=== PATIENT | male | born 1950 | race Caucasian/White ===

== ENCOUNTER 2024-05-08 08:06 | Inpatient (IN) | payer OTHER, MEDICAID ==
[~2024-05-08] VITALS: Ht 160 cm; Wt 77.1 kg
[2024-05-08 08:34] VITALS: BP_SYST 129; PULSE 86; RESP 20; TEMP 97.8; O2SAT 96
[2024-05-08 08:34] LABS: BASOPHILS # (AUTO) 0.1 K/uL (0.0-0.2); BASOPHILS % (AUTO) 1.2 % (0.0-2.0); EOSINOPHILS # (AUTO) 0.2 K/uL (0.0-0.4); EOSINOPHILS % (AUTO) 2.9 % (0.0-4.0); HEMATOCRIT 40.2 % (36-54); HEMOGLOBIN 13.5 g/dL (14.0-18.0); LYMPHOCYTES # (AUTO) 1.3 K/uL (1.0-5.5); LYMPHOCYTES % (AUTO) 19.8 % (20.5-51.5); MEAN CORPUSCULAR HEMOGLOBIN 32 pg (27-31); MEAN CORPUSCULAR HGB CONC 34 % (32-36); MEAN CORPUSCULAR VOLUME 96 fL (79.0-98.0); MONOCYTES # (AUTO) 0.8 K/uL (0.0-1.0); MONOCYTES % (AUTO) 12.8 % (1.7-9.3); NEUTROPHILS # (AUTO) 4.1 K/uL (1.8-7.7); NEUTROPHILS % (AUTO) 63.3 % (40.0-70.0); PLATELET COUNT (AUTO) 213 K/uL (130-430); RED BLOOD CELL COUNT(AUTO) 4.19 MIL/uL (4.2-6.2); RED CELL DISTRIBUTION WIDTH 15.5 % (9.0-15.0); WHITE BLOOD COUNT (AUTO) 6.5 K/uL (4.8-10.8)
[2024-05-08 08:46] LABS: ALANINE AMINOTRANSFERASE 29 U/L (12-78); ALBUMIN 3.8 g/dL (3.4-4.8); ANION GAP 9 (5-15); ASPARTATE AMINOTRANSFERASE 21 U/L (10-37); BILIRUBIN,DIRECT 0.7 mg/dL (0.0-0.3); CALCIUM 9.1 mg/dL (8.4-11.0); CARBON DIOXIDE 25 mmol/L (23-29); CHLORIDE 99 mmol/L (98-107); CREATININE 1.81 mg/dL (0.55-1.30); GLUCOSE 288 mg/dL (74-106); LIPASE 65 U/L (16-77); POTASSIUM 5.5 mmol/L (3.5-5.1); SODIUM SERUM 133 mmol/L (136-145); TOTAL BILIRUBIN 1.2 mg/dL (0.0-1.0); TOTAL PROTEIN, SERUM 7.5 g/dL (6.4-8.3); UREA NITROGEN, BLOOD 43 mg/dL (8-21)
[2024-05-08 09:05] LABS: BILIRUBIN,URINE NEGATIVE (NEGATIVE); BLOOD, URINE NEGATIVE (NEGATIVE); CLARITY/URINE CLEAR (CLEAR); COLOR,URINE YELLOW (YELLOW); GLUCOSE,URINE NEGATIVE (NEGATIVE); KETONES,URINE NEGATIVE (NEGATIVE); LEUKOCYTE ESTERASE ,URINE NEGATIVE (NEGATIVE); NITRITE, URINE NEGATIVE (NEGATIVE); PROTEIN URINE 1+ (NEGATIVE)
[2024-05-08] MEDS: SODIUM POLYSTYRENE SULFONATE 15 GM/60 ML UDBTL PO ONE (10:20)
[2024-05-08] MEDS ORDERED: CLOP75TA32 PO (10:27)
[2024-05-08] MEDS ORDERED: SPIR50TA5 PO (10:27)
[2024-05-08] MEDS ORDERED: FURO-149 PO (10:27)
[2024-05-08] MEDS ORDERED: LIP40 PO (10:27)
[2024-05-08] MEDS ORDERED: APIX5TAB PO (10:27)
[2024-05-08] MEDS ORDERED: DIGO-31 PO (10:27)
[2024-05-08] MEDS ORDERED: LISI10TA29 PO (10:27)
[2024-05-08] MEDS ORDERED: GLIP10TA21 PO (10:27)
[2024-05-08] MEDS ORDERED: PRO40 PO (10:27)
[2024-05-08] MEDS ORDERED: CARV25TA55 PO (10:27)
[2024-05-08] MEDS: *LOVENOX 1MG/KG Q12H/PHARMACY XX ONE (13:15)
[2024-05-08] MEDS ORDERED: INSULIN ASPART 100 UNITS/ML, 10 ML VIAL (NovoLOG) SUBCUT PRN (13:15)
[2024-05-08] MEDS: 0.45% NACL 1,000 ML IV ONE (13:52)
[2024-05-08] MEDS: DIGOXIN 0.125 MG TABLET PO ONE (13:58)
[2024-05-08] MEDS: CARVEDILOL 25 MG TABLET (COREG) PO ONE (13:58)
[2024-05-08] MEDS: glipiZIDE XL 5 MG TAB ( GLUCOTROL XL) PO ONE (14:04)
[2024-05-08 14:58] VITALS: BP_SYST 115; PULSE 80; RESP 18; TEMP 97.5
[2024-05-08 16:25] VITALS: BP_SYST 104; PULSE 79; RESP 16; TEMP 97.7; O2SAT 99
[2024-05-08] MEDS: ENOXAPARIN SODIUM 40 MG/0.4 ML SYRINGE SUBCUT SCH (17:09)
[2024-05-08] MEDS: PIPERACILLIN/TAZO 4.5 GM in D5W 100 ML IV ONE (17:11)
[2024-05-08 19:00] VITALS: BP_SYST 115; PULSE 80; RESP 18; TEMP 97.5
[2024-05-08 20:00] VITALS: O2SAT 99
[2024-05-08 20:05] VITALS: BP_SYST 107; PULSE 82; RESP 18; TEMP 97.6; O2SAT 99
[2024-05-08] MEDS: glipiZIDE XL 5 MG TAB ( GLUCOTROL XL) PO SCH (20:36)
[2024-05-08] MEDS: PIPERACILLIN/TAZO 4.5 GM in D5W 100 ML IV SCH (22:08)
[2024-05-08] MEDS: DIPHENHYDRAMINE HCL 12.5 MG/5 ML UDC PO ONE (23:50)
[2024-05-09 01:28] VITALS: BP_SYST 105; PULSE 79; RESP 18; TEMP 97.6; O2SAT 99
[2024-05-09 06:08] LABS: BASOPHILS # (AUTO) 0.1 K/uL (0.0-0.2); BASOPHILS % (AUTO) 1.1 % (0.0-2.0); EOSINOPHILS # (AUTO) 0.2 K/uL (0.0-0.4); EOSINOPHILS % (AUTO) 4.3 % (0.0-4.0); HEMATOCRIT 37.5 % (36-54); HEMOGLOBIN 12.4 g/dL (14.0-18.0); LYMPHOCYTES # (AUTO) 0.8 K/uL (1.0-5.5); LYMPHOCYTES % (AUTO) 16.1 % (20.5-51.5); MEAN CORPUSCULAR HEMOGLOBIN 31 pg (27-31); MEAN CORPUSCULAR HGB CONC 33 % (32-36); MEAN CORPUSCULAR VOLUME 94 fL (79.0-98.0); MONOCYTES # (AUTO) 0.5 K/uL (0.0-1.0); MONOCYTES % (AUTO) 10.2 % (1.7-9.3); NEUTROPHILS # (AUTO) 3.4 K/uL (1.8-7.7); NEUTROPHILS % (AUTO) 68.3 % (40.0-70.0); PLATELET COUNT (AUTO) 181 K/uL (130-430); RED BLOOD CELL COUNT(AUTO) 3.98 MIL/uL (4.2-6.2); RED CELL DISTRIBUTION WIDTH 15.5 % (9.0-15.0); WHITE BLOOD COUNT (AUTO) 4.9 K/uL (4.8-10.8)
[2024-05-09 06:11] LABS: ANION GAP 10 (5-15); CALCIUM 8.6 mg/dL (8.4-11.0); CARBON DIOXIDE 26 mmol/L (23-29); CHLORIDE 100 mmol/L (98-107); CREATININE 1.45 mg/dL (0.55-1.30); GLUCOSE 242 mg/dL (74-106); POTASSIUM 4.2 mmol/L (3.5-5.1); SODIUM SERUM 136 mmol/L (136-145); UREA NITROGEN, BLOOD 29 mg/dL (8-21)
[2024-05-09 07:45] VITALS: BP_SYST 114; PULSE 81; RESP 16; TEMP 97.8; O2SAT 97
[2024-05-09 09:00] VITALS: O2SAT 97
[2024-05-09] MEDS: DIGOXIN 0.125 MG TABLET PO SCH (09:19)
[2024-05-09] MEDS: CARVEDILOL 25 MG TABLET (COREG) PO SCH (09:20)
[2024-05-09] MEDS: PANTOPRAZOLE SODIUM 40 MG TAB PO SCH (09:22)
[2024-05-09 11:19] VITALS: BP_SYST 119; PULSE 81; RESP 17; TEMP 96.9; O2SAT 100
[2024-05-09 15:12] VITALS: BP_SYST 105; PULSE 68; RESP 16; TEMP 96.6; O2SAT 93
[2024-05-09 20:00] VITALS: BP_SYST 114; PULSE 82; RESP 16; TEMP 98.2; O2SAT 98
[2024-05-10 01:01] VITALS: BP_SYST 103; PULSE 81; RESP 17; TEMP 96.8; O2SAT 97
[2024-05-10 08:27] VITALS: BP_SYST 117; PULSE 74; RESP 22; TEMP 97.2; O2SAT 100
[2024-05-10 08:42] LABS: BASOPHILS # (AUTO) 0.1 K/uL (0.0-0.2); BASOPHILS % (AUTO) 1.5 % (0.0-2.0); EOSINOPHILS # (AUTO) 0.2 K/uL (0.0-0.4); EOSINOPHILS % (AUTO) 3.4 % (0.0-4.0); HEMATOCRIT 39.4 % (36-54); HEMOGLOBIN 13.1 g/dL (14.0-18.0); LYMPHOCYTES # (AUTO) 0.8 K/uL (1.0-5.5); MEAN CORPUSCULAR HEMOGLOBIN 32 pg (27-31); MEAN CORPUSCULAR HGB CONC 33 % (32-36); MEAN CORPUSCULAR VOLUME 95 fL (79.0-98.0); MONOCYTES # (AUTO) 0.6 K/uL (0.0-1.0); MONOCYTES % (AUTO) 12.1 % (1.7-9.3); NEUTROPHILS # (AUTO) 3.1 K/uL (1.8-7.7); PLATELET COUNT (AUTO) 183 K/uL (130-430); RED BLOOD CELL COUNT(AUTO) 4.14 MIL/uL (4.2-6.2); RED CELL DISTRIBUTION WIDTH 15.3 % (9.0-15.0); WHITE BLOOD COUNT (AUTO) 4.7 K/uL (4.8-10.8)
[2024-05-10] MEDS: CARVEDILOL 12.5 MG TABLET (COREG) PO SCH (08:45)
[2024-05-10 09:18] LABS: ANION GAP 11 (5-15); CALCIUM 8.8 mg/dL (8.4-11.0); CARBON DIOXIDE 25 mmol/L (23-29); CHLORIDE 99 mmol/L (98-107); CREATININE 1.49 mg/dL (0.55-1.30); GLUCOSE 217 mg/dL (74-106); POTASSIUM 4.2 mmol/L (3.5-5.1); SODIUM SERUM 135 mmol/L (136-145); UREA NITROGEN, BLOOD 22 mg/dL (8-21)
[2024-05-10 12:07] VITALS: BP_SYST 108; PULSE 81; RESP 16; TEMP 97.3; O2SAT 99
[2024-05-10] MEDS ORDERED: GLUCOSE (DEXTROSE) ORAL GEL -Adults PO PRN (12:30)
[2024-05-10] MEDS ORDERED: D5W 1,000 ML IV PRN (12:30)
[2024-05-10] MEDS ORDERED: DEXTROSE 50%-WATER 50 ML DISP.SYRIN IVP PRN (12:30)
[2024-05-10] MEDS: INSULIN LISPRO SLIDING SCALE 100 UNITS/ML, 3 ML VIAL (humaLOG) SUBCUT PRN (12:37)
[2024-05-10 16:30] VITALS: BP_SYST 114; PULSE 80; RESP 15; TEMP 97.8; O2SAT 98
[2024-05-10 20:00] VITALS: BP_SYST 96; PULSE 86; RESP 18; TEMP 97.3; O2SAT 100
[2024-05-11] VITALS: BP_SYST 100; PULSE 83; RESP 18; TEMP 98.6; O2SAT 95
[2024-05-11] MEDS: TEMAZEPAM 7.5 MG CAPSULE PO PRN (02:37)
[2024-05-11 07:07] LABS: BASOPHILS # (AUTO) 0.1 K/uL (0.0-0.2); BASOPHILS % (AUTO) 1.3 % (0.0-2.0); EOSINOPHILS # (AUTO) 0.3 K/uL (0.0-0.4); EOSINOPHILS % (AUTO) 5.5 % (0.0-4.0); HEMATOCRIT 38.1 % (36-54); HEMOGLOBIN 12.8 g/dL (14.0-18.0); LYMPHOCYTES % (AUTO) 21.4 % (20.5-51.5); MEAN CORPUSCULAR HEMOGLOBIN 32 pg (27-31); MEAN CORPUSCULAR HGB CONC 34 % (32-36); MEAN CORPUSCULAR VOLUME 95 fL (79.0-98.0); MONOCYTES # (AUTO) 0.6 K/uL (0.0-1.0); NEUTROPHILS # (AUTO) 2.7 K/uL (1.8-7.7); NEUTROPHILS % (AUTO) 57.8 % (40.0-70.0); PLATELET COUNT (AUTO) 186 K/uL (130-430); RED BLOOD CELL COUNT(AUTO) 4.02 MIL/uL (4.2-6.2); RED CELL DISTRIBUTION WIDTH 15.3 % (9.0-15.0); WHITE BLOOD COUNT (AUTO) 4.6 K/uL (4.8-10.8)
[2024-05-11 07:42] LABS: ANION GAP 12 (5-15); CALCIUM 8.5 mg/dL (8.4-11.0); CARBON DIOXIDE 24 mmol/L (23-29); CHLORIDE 101 mmol/L (98-107); CREATININE 1.39 mg/dL (0.55-1.30); GLUCOSE 227 mg/dL (74-106); POTASSIUM 3.9 mmol/L (3.5-5.1); SODIUM SERUM 137 mmol/L (136-145); UREA NITROGEN, BLOOD 17 mg/dL (8-21)
[2024-05-11 07:52] VITALS: BP_SYST 116; PULSE 81; RESP 13; TEMP 97.7; O2SAT 100
[2024-05-11] MEDS ORDERED: LEVO750T64 PO (08:45)
[2024-05-11] MEDS ORDERED: DIPH25CA83 PO (08:45)
[2024-05-11 10:21] VITALS: BP_SYST 119; PULSE 80; RESP 18; TEMP 97.3; O2SAT 100
[2024-05-28] MEDS ORDERED: ZOLP5TAB2 PO (18:25)
== END 2024-05-11 10:48 | disposition home or self-care (01) | DRG 445 ==
LOC: SED 08:06 → STU 13:04
PROVIDERS: ADMIT Specialist; ATTEND Specialist
DX: K81.0 Acute cholecystitis (principal); I50.22 Chronic systolic (congestive) heart failure; N17.9 Acute kidney failure, unspecified; I25.10 Atherosclerotic heart disease of native coronary artery without angina pectoris; I11.0 Hypertensive heart disease with heart failure; E78.5 Hyperlipidemia, unspecified; E11.9 Type 2 diabetes mellitus without complications; Z79.899 Other long term (current) drug therapy
CPT/HCPCS: 36415; 71045; 76705; 78226; 80048; 80076; 80162; 81001; 81003; 82948; 83690; 85025; 93005; 93306; 99285; A9537; G0378; J1650; J2543; J7060